=== PATIENT | female | born 1975 | race Caucasian/White ===

== ENCOUNTER → 2023-11-14 06:22 | Day surgery (SDC) | payer BC, SELFPAY | LOC: GI 06:22 | PROVIDERS: ATTENDING PHYSICIAN Internal Medicine; FAMILY PHYSICIAN Family Medicine | DX: Z12.11 Encounter for screening for malignant neoplasm of colon (principal); K63.5 Polyp of colon; K62.1 Rectal polyp | CPT/HCPCS: 45380; 88305 ==

== ENCOUNTER → 2025-06-27 12:20 | Outpatient (REF) | payer OTHER, SELFPAY | LOC: HWRAD 12:20 | PROVIDERS: ATTENDING PHYSICIAN Chiropractor; FAMILY PHYSICIAN Family Medicine | DX: M53.1 Cervicobrachial syndrome (principal); S39.012A Strain of muscle, fascia and tendon of lower back, initial encounter | CPT/HCPCS: 72050; 72100 ==

== ENCOUNTER 2025-07-16 19:04 | Emergency (ER) | payer OTHER, SELFPAY ==
[2025-07-16 19:10] VITALS: BP 139/101
[2025-07-16] MEDS: ZOFRAN ODT (ORALLY DISINTEGRATING) 4 MG PO (20:16)
[2025-07-16 21:01] LABS: ALT (SGPT) 58 U/L (0-35); AST (SGOT) 40 U/L (14-36); Albumin 4.9 g/dl (3.5-5.0); Alkaline Phosphatase 79 U/L (38-126); Blood Urea Nitrogen 15 mg/dl (7-17); Calcium 9.9 mg/dl (8.4-10.2); Carbon Dioxide 25 mmol/L (22-30); Chloride 102 mmol/L (98-107); Glucose 88 mg/dl (70-99); Potassium 4.6 mmol/L (3.5-5.1); Sodium 137 mmol/L (135-145); Total Protein 8.3 g/dl (6.3-8.2); eGFR > 60.00
[2025-07-16 22:17] VITALS: BMI 22.3
[2025-07-16 22:18] LABS: Hematocrit 43.1 % (37.0-47.0); Hemoglobin 14.6 g/dL (12.0-16.0); Mean Corp Hgb Conc. 33.9 g/dL (33.0-37.0); Mean Corpuscular Volume 89.2 fL (81.0-99.0); Nucleated Red Blood Cells % 0 %; Platelet Count 325 10^3/uL (130-400); Red Cell Dist. Width 12.4 % (11.5-14.5)
[2025-07-16] MEDS: NSS 1000 IV (22:44)
[2025-07-16 23:40] VITALS: BP 109/74
[2025-07-17] MEDS: REGLAN 10 MG IV (00:59)
[2025-07-17 01:03] VITALS: BP 117/87
[2025-07-17 01:55] VITALS: BP 123/84
--- NOTE | 2025-07-17 02:02 | ED.GENMED ---
History of Present Illness
General
Chief Complaint: Dehydration Symptoms
Source: patient
Exam Limitations: none
Time Seen by Provider: 07/16/25 22:31
Nursing documentation reviewed up to this point in time: agreed with
History of Present Illness
History of Present Illness:
Note:
CHIEF COMPLAINT(S)
Vomiting following medication administration.
HISTORY OF PRESENT ILLNESS
The patient is a 49-year-old female who experienced vomiting after taking a medication known as semaglutide (Wegovy) at a high dose. She had previously been off the medication for eight weeks due to insurance issues. Upon reinitiation, the patient
resumed the original high dose around 2:00 AM, leading to onset of vomiting. The vomiting persisted throughout the day, preventing her from consuming food or fluids. She contacted her primary care physician multiple times and was advised to seek
medical care. Upon arrival, she reported feeling better after receiving anti-nausea medication and intravenous fluids. 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
PHYSICAL EXAM
General: Alert, no acute distress.
Skin: Warm, dry.
Head: Normocephalic, atraumatic.
Neck: Supple, trachea midline.
Eye Ears, Nose, Mouth and Throat: Oral mucosa moist.
Cardiovascular: Normal peripheral perfusion, no edema.
Respiratory: Respirations are non-labored.
Gastrointestinal: Abdomen nondistended.
Back: Normal range of motion, normal alignment.
Musculoskeletal: Normal range of motion, normal strength.
Neurological: Alert and oriented to person, place, time, and situation, no focal neurological deficit observed.
Psychiatric: Cooperative, appropriate mood and affect.
PLAN
1. Administered another liter of intravenous fluids.
2. Prescribed ondansetron (Zofran) for nausea management.
DIFFERENTIAL DIAGNOSIS
The Differential Diagnosis includes, in no particular order and is not limited to:
1. Medication-induced gastroenteritis
2. Gastroenteritis due to viral infection
3. Acute gastritis
4. Food poisoning
5. Peptic ulcer disease
6. Gastroesophageal reflux disease (GERD)
7. Stress-induced vomiting
8. Migraine-associated gastrointestinal symptoms
9. Pancreatitis
10. Intestinal obstruction
Disposition:
SUMMARY OF ENCOUNTER
The patient, a 49-year-old female, presented with nausea and vomiting after reinitiating semaglutide (Wegovy). Initially, ondansetron (Zofran) provided slight relief, but the symptoms persisted. The antiemetic was switched to metoclopramide
(Reglan), which successfully alleviated the symptoms, allowing the patient to tolerate liquids.
DISPOSITION
Discharge
ASSESSMENT
The patient experienced medication-induced vomiting secondary to semaglutide (Wegovy) with successful symptomatic relief after treatment with metoclopramide (Reglan).
EMERGENCY TREATMENTS ADMINISTERED
Metoclopramide (Reglan) administered in the emergency department, which resolved the symptoms.
PLAN
Discharge with instructions to monitor for symptoms and consider future preventative strategies for nausea management associated with semaglutide.
PATIENT EDUCATION AND COUNSELING
The patient was advised regarding the potential side effects of semaglutide and instructed on how to manage nausea if it recurs. Guidance was provided on when to seek further medical attention.
FOLLOW-UP INSTRUCTIONS
The patient was instructed to follow up with their primary care physician for ongoing management and to adjust treatment as necessary.
MEDICATION RECONCILIATION
1. Administered metoclopramide (Reglan) in the emergency department to address nausea and vomiting.
2. Prescribed semaglutide (Wegovy) with consideration of adjusting dosage or administration following consultation with a physician.
MEDICAL DECISION MAKING
-Complexity of Data Reviewed:
Chronic conditions affecting care include possible medication-induced gastroenteritis. Reviewed potential differential diagnoses: medication-induced gastroenteritis, gastroenteritis due to viral infection, acute gastritis, food poisoning, peptic
ulcer disease, GERD, stress-induced vomiting, migraine-associated gastrointestinal symptoms, pancreatitis, intestinal obstruction.
-Data:
Category 1:
The patients previous records were reviewed to understand the context of the semaglutide administration and assess the incidence of side effects related to medication resumption.
-Risk:
Prescription medication (semaglutide) resumed required careful consideration to manage its side effects. Prescription medication metoclopramide was administered safely to mitigate nausea.
DIAGNOSIS
R11.10 - Nausea with vomiting, unspecified
T50.995A - Adverse effect of other specified drugs, initial encounter
Course
Orders/Labs/Results
Orders:
Orders
07/16/25 20:15
Ondansetron Orally Disint [Zofran Odt (Orally Disintegrating)] 4 mg .ROUTE .STK-MED ONE
07/16/25 20:16
Ondansetron Orally Disint [Zofran Odt (Orally Disintegrating)] 4 mg PO NOW STA
07/16/25 20:22
CMP [Comprehensive Metabolic Panel] Urgent
07/16/25 22:11
Complete Blood Count/With Diff Urgent
07/16/25 22:34
0.9% Sodium Chloride 1000 ml [Nss] 1,000 ml IV BOLUS
07/17/25 00:27
Metoclopramide [Reglan] 10 mg IV NOW STA
Abnormal Lab Results
07/16/25 07/16/25
20:22 22:11
WBC 11.6 H 10^3/uL
(4.8-10.8)
Absolute Neuts (auto) 8.7 H 10^3/uL
(1.4-6.5)
Lymphocytes % 19.7 L %
(20.5-51.1)
AST 40 H U/L
(14-36)
ALT 58 H U/L
(0-35)
Total Protein 8.3 H g/dl
(6.3-8.2)
07/16/25 22:11
07/16/25 20:22
Vital Signs
Initial and Last Documented VS:
Initial Vital Signs
Temp Pulse Resp BP Pulse Ox
98.1 F 91 16 139/101 97
07/16/25 19:10 07/16/25 19:10 07/16/25 19:10 07/16/25 19:10 07/16/25 19:10
Last Documented Vital Signs
Temp Pulse Resp BP Pulse Ox
98.1 F 90 14 123/84 98
07/16/25 19:10 07/17/25 01:55 07/17/25 01:55 07/17/25 01:55 07/17/25 01:55
*Pulse Oximetry
SaO2: 98
Oxygen Mode of Delivery: Room air
Patient hypoxic: no
*Critical Care Note
Total Time (30-74mins, 75-104mins- exclusive of procedures): Not Applicable
ED Attending Note
-
Portions of this chart may have been created with voice recognition software.� Occasional wrong word or��sound alike� substitutions may have occurred due to the inherent limitations of voice recognition software.
Discharge Plan
Departure
Patient Disposition: Home (Routine Discharge)
Date of Disposition: 07/17/25
Time of Disposition: 02:03
Patient with high blood pressure during this ER visit?: Yes
Condition: Good
Discharge Problem:
Medication reaction, Nausea and vomiting, Dehydration
Instructions: Dehydration, Adult (DC), Nausea and Vomiting, Adult (DC), Side effects from medicines
Prescriptions:
New
metoclopramide HCl [Reglan] 10 mg tablet
10 mg PO Q6H PRN (Reason: nausea and vomiting) Qty: 10 0RF
No Action
escitalopram oxalate [Lexapro] 10 mg Tablet
20 mg PO DAILY
meloxicam 7.5 mg Tablet
7.5 mg PO DAILY
Wegovy 2.4 mg/0.75 mL Pen Injector
2.4 mg SC QWEEK
Referrals:
Kizzy Sandoval MD [Family Provider, Family Practice]
Activity Restrictions/Additional Instructions:
Thank You for choosing [facility].
It was a pleasure meeting you and taking part in your care. We hope for your continued healing and wellness.
Please read discharge instructions in their entirety. However, they are for general education and may not describe your exact diagnosis at discharge. Information on your ER visit and medical conditions were discussed with you along with appropriate
follow up information...
If indicated, please take your medications as instructed and indicated on discharge paperwork.
Please schedule a follow up appointment as directed. Call to schedule an appointment
Please return to the emergency department with ANY change in, persisting, or worsening of symptoms. If any of your symptoms do not improve, or persist, or become more severe within 6-12 hours, please return to the emergency department for further
care.
Please return to the emergency department if you develop a headache, neck pain/stiffness, fever greater than 100.4F, chest pain, shortness of breath, persistent nausea, vomiting, slurred speech, difficulty walking, numbness/tingling, weakness, signs
of infection or any other symptoms that are worrisome to you.
If you have any questions or concerns please do not hesitate to call the Hospital at .
Interventions
Interventions:
*Risk Screen - Suicide Last Done: 07/16/25 19:10
*General Assessment Last Done: 07/16/25 22:15
*Neglect/Abuse Screening Last Done: 07/16/25 19:10
*ED- Fall Risk Assessment Last Done: 07/16/25 22:15
*ED COVID-19 Vaccine History Last Done: 07/16/25 22:15
*ED Influenza Vaccine History Last Done: 07/16/25 22:15
ED- Cardiac Assessment Last Done: 07/16/25 23:30
ED- Neurological Assessment Last Done: 07/16/25 23:30
ED- Pulmonary Assessment Last Done: 07/16/25 23:30
Discharge Date and Time
Print Language: S[place]
== END 2025-07-17 02:10 | disposition home or self-care (01) ==
LOC: EMR 19:04
PROVIDERS: Student in an Organized Health Care Education/Training Program; EMERGENCY PHYSICIAN Student in an Organized Health Care Education/Training Program; FAMILY PHYSICIAN Family Medicine
DX: R11.2 Nausea with vomiting, unspecified (principal); T50.5X5A Adverse effect of appetite depressants, initial encounter; E86.0 Dehydration; R03.0 Elevated blood-pressure reading, without diagnosis of hypertension
CPT/HCPCS: 99284; 96360; 80053; 85025